=== PATIENT | female | born 1995 | race Caucasian/White ===

== ENCOUNTER 2016-11-11 13:32 | Emergency (ER) | payer SELFPAY ==
[~2016-11-11] VITALS: Ht 162.6 cm; Wt 55.0 kg
[~2016-11-11 13:32] MED LIST: AUGM875T PO; IBUP800T23 PO
[2016-11-11 13:35] VITALS: BP 139/85; PULSE 158; RESP 18; TEMP 98.4; O2SAT 98
[2016-11-11 13:40] VITALS: BP 134/74; PULSE 150; RESP 20; O2SAT 100
--- NOTE | 2016-11-11 13:46 | PD ---
HPI . deep chest pain x 1 week Chief Complaint: Respiratory Symptoms Time Seen by Provider: 13:44 Travel History International Travel<30 days: No Contact w/Intl Traveler<30days: No Traveled to known affect area: No History of Present Illness HPI 21-year-old female with no significant past medical history here with 3 weeks worth of cold, congestion and chest discomfort. Patient says her cold symptoms started about 3 weeks ago and seemed more like a common cold. She also had some nasal congestion. Her symptoms improved and the following week she noticed that she had a lingering cough. She says she's been doing with a cough since the beginning of her symptoms, but now she is having a deep left-sided pain near her ribs that knocked her off of her feet yesterday. She also reports that she had some periods of shortness of breath. She denies any fever, but admits to chills. She is a daily smoker, but denies any illicit drug use. She denies any chance of as she is homosexual. [facility] Past Medical History Anemia: Yes Diminished Hearing: No Past Surgical History Tonsillectomy: Yes (& Adenoids) Tympanostomy Tube: Yes Social History Alcohol Use: Yes (on occasion) Tobacco Use: Yes (2 cig a day) Substance Use: No Allergies-Medications (Allergen,Severity, Reaction): Coded Allergies: Codeine (Unverified Allergy, Severe, Hives, 11/11/16) Tramadol (Unverified Allergy, Intermediate, Hives, 11/11/16) Reported Meds & Prescriptions Reported Meds & Active Scripts Active Prednisone 50 Mg Tab 50 Mg PO DAILY Review of Systems General / Constitutional: No: Fever Eyes: No: Visual changes HENT: No: Headaches Cardiovascular: Positive: Chest Pain or Discomfort (pleuritic left side) Respiratory: Positive: Shortness of Breath Gastrointestinal: No: Abdominal Pain Genitourinary: No: Dysuria Musculoskeletal: No: Pain Skin: No Rash Neurologic: No: Weakness Psychiatric: No: Depression Endocrine: No: Polydipsia Hematologic/Lymphatic: No: Easy Bruising Physical Exam Narrative GENERAL: AAO x 3, no acute distress, Well-nourished, well-developed patient. SKIN: Warm and dry. No visible rashes or bruising. HEAD: Normocephalic and atraumatic. EYES: No scleral icterus. No injection or drainage. EOM intact, PERRLA ENT: No nasal drainage noted. Mucous membranes pink. Airway patent. NECK: Supple, trachea midline. No JVD. CARDIOVASCULAR: Regular rate and rhythm without murmurs, gallops, or rubs. Pain nonreproducible on left side RESPIRATORY: Breath sounds equal bilaterally. No accessory muscle use. No rhonchi or rales. GASTROINTESTINAL: Abdomen soft, non-tender, nondistended. EXTREMITIES: No cyanosis or edema. BACK: Nontender without obvious deformity. No CVA tenderness. NEURO: CN II-12 intact, layboy tender strength normal b/l, UE and LE 5/5, no focal deficits PSYCH: AAO x 3, normal affect. Data Data Last Documented VS Vital Signs Date Time Temp Pulse Resp B/P Pulse Ox O2 Delivery O2 Flow Rate FiO2 11/11/16 18:43 67 16 105/68 100 Room Air 11/11/16 14:18 2 11/11/16 13:35 98.4 Orders Complete Blood Count With Diff (11/11/16 13:46) Basic Metabolic Panel (Bmp) (11/11/16 13:46) Act Partial Throm Time (Ptt) (11/11/16 13:46) Prothrombin Time / Inr (Pt) (11/11/16 13:46) Ckmb (Isoenzyme) Profile (11/11/16 13:46) Troponin I (11/11/16 13:46) Iv Access Insert/Monitor (11/11/16 13:46) Ecg Monitoring (11/11/16 13:46) Oximetry (11/11/16 13:46) Oxygen Administration (11/11/16 13:46) Chest, Single Ap (11/11/16 13:46) Ct Pulmonary Angiogram (11/11/16 13:46) Sodium Chloride 0.9% Flush (Ns Flush) (11/11/16 14:00) Electrocardiogram (11/11/16 13:46) Ed Urine Pregnancytest Poc (11/11/16 13:46) Drug Screen, Random Urine (11/11/16 13:46) Lactic Acid Sepsis Protocol (11/11/16 13:56) Blood Culture (11/11/16 13:56) Sodium Chlor 0.9% 1000 Ml Inj (Ns 1000 M (11/11/16 15:00) Iohexol 350 Inj (Omnipaque 350 Inj) (11/11/16 16:06) Urinalysis - C+S If Indicated (11/11/16 16:38) Labs Laboratory Tests Test 11/11/16 11/11/16 14:00 17:00 White Blood Count 5.5 TH/MM3 Red Blood Count 4.21 MIL/MM3 Hemoglobin 12.4 GM/DL Hematocrit 35.4 % Mean Corpuscular Volume 84.0 FL Mean Corpuscular Hemoglobin 29.4 PG Mean Corpuscular Hemoglobin 35.0 % Concent Red Cell Distribution Width 14.0 % Platelet Count 294 TH/MM3 Mean Platelet Volume 8.3 FL Neutrophils (%) (Auto) 50.9 % Lymphocytes (%) (Auto) 35.1 % Monocytes (%) (Auto) 11.9 % Eosinophils (%) (Auto) 1.4 % Basophils (%) (Auto) 0.7 % Neutrophils # (Auto) 2.8 TH/MM3 Lymphocytes # (Auto) 1.9 TH/MM3 Monocytes # (Auto) 0.7 TH/MM3 Eosinophils # (Auto) 0.1 TH/MM3 Basophils # (Auto) 0.0 TH/MM3 CBC Comment DIFF FINAL Differential Comment Prothrombin Time 10.7 SEC Prothromb Time International 1.0 RATIO Ratio Activated Partial 27.3 SEC Thromboplast Time Sodium Level 137 MEQ/L Potassium Level 3.3 MEQ/L Chloride Level 102 MEQ/L Carbon Dioxide Level 26.8 MEQ/L Anion Gap 8 MEQ/L Blood Urea Nitrogen 9 MG/DL Creatinine 0.64 MG/DL Estimat Glomerular Filtration 115 ML/MIN Rate Random Glucose 98 MG/DL Lactic Acid Level 1.2 mmol/L Calcium Level 9.3 MG/DL Total Creatine Kinase 70 U/L Troponin I LESS THAN 0.02 NG/ML Urine Color LIGHT-YELLOW Urine Turbidity HAZY Urine pH 7.0 Urine Specific [place] 1.035 Urine Protein NEG mg/dL Urine Glucose (UA) NEG mg/dL Urine Ketones NEG mg/dL Urine Occult Blood NEG Urine Nitrite NEG Urine Bilirubin NEG Urine Urobilinogen LESS THAN 2.0 MG/DL Urine Leukocyte Esterase NEG Urine WBC 2 /hpf Urine Squamous Epithelial 5 /hpf Cells Microscopic Urinalysis Comment CULT NOT INDICATED Urine Opiates Screen NEG Urine Barbiturates Screen NEG Urine Amphetamines Screen NEG Urine Benzodiazepines Screen NEG Urine Cocaine Screen NEG Urine Cannabinoids Screen POS MDM Medical Decision Making Medical Screen Exam Complete: Yes Emergency Medical Condition: Yes Medical Record Reviewed: Yes Differential Diagnosis pulmonary emboli, pneumonia, bronchitis, sepsis, tachycardia Narrative Course 21 yr old female here with c/o pain on her left side of rib pain with associated shortness of breath. EKG with HR 107. Reviewed by Dr. Montes De Oca. Labs and CT Pulmonary Angio ordered to r/o PE. HR initially tachycardic and fluctuated for a bit. Could be related to DVT, infection, drug etc. Last Impressions Chest X-Ray [id number]/11/[id number] Signed Impressions: Service Date/Time: Friday, November 11, 2016 13:56 - CONCLUSION: No acute disease. Zach Espino MD FACR CT Angiography [id number] Signed Impressions: Service Date/Time: Friday, November 11, 2016 15:56 - CONCLUSION: Negative for central pulmonary emboli. Zach Espino MD FACR Laboratory Tests Test 11/11/16 11/11/16 14:00 17:00 White Blood Count 5.5 TH/MM3 Red Blood Count 4.21 MIL/MM3 Hemoglobin 12.4 GM/DL Hematocrit 35.4 % Mean Corpuscular Volume 84.0 FL Mean Corpuscular Hemoglobin 29.4 PG Mean Corpuscular Hemoglobin 35.0 % Concent Red Cell Distribution Width 14.0 % Platelet Count 294 TH/MM3 Mean Platelet Volume 8.3 FL Neutrophils (%) (Auto) 50.9 % Lymphocytes (%) (Auto) 35.1 % Monocytes (%) (Auto) 11.9 % Eosinophils (%) (Auto) 1.4 % Basophils (%) (Auto) 0.7 % Neutrophils # (Auto) 2.8 TH/MM3 Lymphocytes # (Auto) 1.9 TH/MM3 Monocytes # (Auto) 0.7 TH/MM3 Eosinophils # (Auto) 0.1 TH/MM3 Basophils # (Auto) 0.0 TH/MM3 CBC Comment DIFF FINAL Differential Comment Prothrombin Time 10.7 SEC Prothromb Time International 1.0 RATIO Ratio Activated Partial 27.3 SEC Thromboplast Time Sodium Level 137 MEQ/L Potassium Level 3.3 MEQ/L Chloride Level 102 MEQ/L Carbon Dioxide Level 26.8 MEQ/L Anion Gap 8 MEQ/L Blood Urea Nitrogen 9 MG/DL Creatinine 0.64 MG/DL Estimat Glomerular Filtration 115 ML/MIN Rate Random Glucose 98 MG/DL Lactic Acid Level 1.2 mmol/L Calcium Level 9.3 MG/DL Total Creatine Kinase 70 U/L Troponin I LESS THAN 0.02 NG/ML Urine Color LIGHT-YELLOW Urine Turbidity HAZY Urine pH 7.0 Urine Specific [place] 1.035 Urine Protein NEG mg/dL Urine Glucose (UA) NEG mg/dL Urine Ketones NEG mg/dL Urine Occult Blood NEG Urine Nitrite NEG Urine Bilirubin NEG Urine Urobilinogen LESS THAN 2.0 MG/DL Urine Leukocyte Esterase NEG Urine WBC 2 /hpf Urine Squamous Epithelial 5 /hpf Cells Microscopic Urinalysis Comment CULT NOT INDICATED Urine Opiates Screen NEG Urine Barbiturates Screen NEG Urine Amphetamines Screen NEG Urine Benzodiazepines Screen NEG Urine Cocaine Screen NEG Urine Cannabinoids Screen POS Discussed negative imaging with patient. She tells me that blood clot was her primary concern. Her heart rate has normalized after IV fluids and it seems patient is calmer now. All labs unremarkable. I think initial HR related to combo anxiety and mild dehydration. Patient appears to have mild bronchitis. Prednisone as outpatient. Discussed cough with patient and how it can linger for a while. Recommend follow-up with her primary care provider Case was discussed with my attending Dr. Montes De Oca. Patient verbalized understanding of instructions, questions were answered, and thanked me for their care. I advised them if their condition worsens, please return to the nearest emergency room for further care. Diagnosis Primary Impression: Bronchitis Patient Instructions: General Instructions Additional Instructions: As we discussed the cough can last 6-8 weeks. Take medications as prescribed. If you are a smoker, try to quit. Follow up with your primary care provider. If you develop sudden onset or worsening of shortness or breath, please go to the nearest emergency room. Med/Other Pt SpecificInfo: Prescription(s) given Scripts Prednisone 50 Mg Tab50 Mg PO DAILY #5 TAB Prov:Matthew Montes De Oca MD 11/11/16 Disposition: 01 DISCHARGE HOME Condition: Stable Jessica Vieira Nov 11, 2016 13:45
[2016-11-11] MEDS ORDERED: SODIUM CHLORIDE 0.9% FLUSH 10 ML FLUSH IVF PRN (14:00)
[2016-11-11 14:18] VITALS: BP 116/73; PULSE 84; RESP 18; O2SAT 100
[2016-11-11 14:24] LABS: AUTOMATED NEUTROPHIL # 2.8 TH/MM3 (1.8-7.7); BASOPHIL % 0.7 % (0.0-2.0); EOSINOPHIL # 0.1 TH/MM3 (0-0.4); EOSINOPHIL % 1.4 % (0.0-4.0); HEMATOCRIT 35.4 % (35.0-46.0); HEMO FLAGS DIFF FINAL; LYMPH % 35.1 % (9.0-44.0); LYMPHOCYTE # 1.9 TH/MM3 (1.0-4.8); MEAN CORPUSCULAR HEMOGLOBIN 29.4 PG (27.0-34.0); MONO % 11.9 % (0.0-8.0); NEUT % 50.9 % (16.0-70.0); PLATELET COUNT 294 TH/MM3 (150-450); RED BLOOD COUNT 4.21 MIL/MM3 (4.00-5.30); WHITE BLOOD COUNT 5.5 TH/MM3 (4.0-11.0)
--- NOTE | 2016-11-11 14:28 | RADRPT ---
EXAM DATE/TIME: 11/11/2016 13:56 [facility] COMPARISON: No previous studies available for comparison. INDICATIONS : Lower left abdominal pain; shortness of breath. MEDICAL HISTORY : None. SURGICAL HISTORY : None. ENCOUNTER: Initial ACUITY: 2 days PAIN SCORE: 9/10 LOCATION: Left lower quadrant Abdomnen FINDINGS: A single view of the chest demonstrates the lungs to be symmetrically aerated without evidence of mas s, infiltrate or effusion. The cardiomediastinal contours are unremarkable. Osseous structures are intact. CONCLUSION: No acute disease. Zach Espino MD FACR on November 11, 2016 at 14:26 Board Certified Radiologist. This report was verified electronically.
[2016-11-11 14:37] LABS: APTT (PATIENT) 27.3 SEC (24.3-30.1); PROTHROMBIN TIME - PATIENT 10.7 SEC (9.8-11.6)
[2016-11-11 14:55] LABS: ANION GAP 8 MEQ/L (5-15); BICARBONATE 26.8 MEQ/L (21.0-32.0); BLOOD UREA NITROGEN 9 MG/DL (7-18); CHLORIDE 102 MEQ/L (98-107); GLOMERULAR FILTRATION RATE 115 ML/MIN (>89); POTASSIUM 3.3 MEQ/L (3.5-5.1); SODIUM (NA) 137 MEQ/L (136-145)
[2016-11-11] MEDS ORDERED: SODIUM CHLOR 0.9% 1000 ML INJ 1,000 ML IV ONE (15:00)
[2016-11-11 15:09] LABS: CREATINE KINASE 70 U/L (26-192)
[2016-11-11] MEDS ORDERED: IOHEXOL 350 MG/ML 10 ML VIAL (for RAD DIAG) IV ONE (16:06)
--- NOTE | 2016-11-11 16:19 | RADRPT ---
EXAM DATE/TIME: 11/11/2016 15:56 [facility] COMPARISON: No previous studies available for comparison. INDICATIONS : Short of breath for three weeks. IV CONTRAST: 69 cc Omnipaque 350 (iohexol) IV RADIATION DOSE: 3.65 CTDIvol (mGy) MEDICAL HISTORY : None SURGICAL HISTORY : Tonsillectomy. ENCOUNTER: Initial ACUITY: 3 weeks PAIN SCALE: 8/10 LOCATION: Bilateral chest TECHNIQUE: Volumetric scanning of the chest was performed using a pulmonary embolism protocol MIP images were re constructed. Using automated exposure control and adjustment of the mA and/or kV according to patien t size, radiation dose was kept as low as reasonably achievable to obtain optimal diagnostic quality images. DICOM format image data is available electronically for review and comparison. Follow-up recommendations for incidentally detected pulmonary nodules are based at a minimum on nodul e size and patient risk factors according to Fleischner Society Guidelines. FINDINGS: PULMONARY ARTERIES: No filling defects are seen in the pulmonary arteries through the segmental level. LUNGS: There is no consolidation or pneumothorax . No concerning pulmonary nodule is visualized. PLEURAE: There is no pleural thickening or pleural effusion. MEDIASTINUM: There is good visualization of the great vessels of the middle mediastinum. No evidence of mediastin al or hilar adenopathy/mass. MUSCULOSKELETAL: Within normal limits for patient age. MISCELLANEOUS: The visualized upper abdominal organs demonstrate no acute abnormality. CONCLUSION: Negative for central pulmonary emboli. Zach Espino MD FACR on November 11, 2016 at 16:11 Board Certified Radiologist. This report was verified electronically.
[2016-11-11 18:34] LABS: BLOOD, URINE NEG (NEG); COMMENT (UR) CULT NOT INDICATED; CULTURE IF INDICATED CULT NOT INDICATED; GLUCOSE,URINE NEG (NEG); KETONE, URINE NEG (NEG); NITRITE,URINE NEG (NEG); SQUAMOUS EPITHELIAL CELL URINE 5 /hpf (0-5); URINE COLOR LIGHT-YELLOW (YELLW/STRAW)
[2016-11-11 18:43] VITALS: BP 105/68; PULSE 67; RESP 16; O2SAT 100
[2016-11-11 18:53] LABS: AMPHETAMINE, URINE NEG (NEG); BARBITURATES, URINE NEG (NEG); COCAINE, URINE NEG (NEG)
[2016-11-11] MEDS ORDERED: PRED50 PO (19:05)
[2016-11-11 19:57] VITALS: BP 102/66
--- NOTE | 2016-11-12 13:14 | EKG ---
Date Performed: 11/11/2016 Time Performed: 13:47:59 PTAGE: 21 years EKG: SINUS TACHYCARDIA POSSIBLE LEFT ATRIAL ENLARGEMENT BORDERLINE RIGHT AXIS DEVIATION POSSIBLE RIGHT VENTRICULAR CONDUCTION DELAY ABNORMAL RHYTHM ECG NO PREVIOUS TRACING DOCTOR: Miah Alford Interpretating Date/Time 11/12/2016 13:11:03
== END 2016-11-11 19:58 | disposition home or self-care (01) ==
LOC: NEPE 13:32
DX: J40 Bronchitis, not specified as acute or chronic (principal); F17.210 Nicotine dependence, cigarettes, uncomplicated
CPT/HCPCS: 71010; 71275; 80048; 80307; 81001; 82550; 83605; 84484; 84703; 85025; 85610; 85730; 87040; 93005; 96360; 99285; J7030; Q9967